=== PATIENT | male | born 1955 | race African-American/Black ===

== ENCOUNTER → 2016-07-20 | Outpatient (CLI) | payer OTHER ==
--- NOTE | 2016-07-21 02:17 | REP ---
Clinical: Lower back pain. Technique: AP, lateral, bilateral oblique, and coned-down views of the lumbosacral spine. Findings: Moderate/early advanced multilevel degenerative changes include osteophytosis, endplate sclerosis, disc space narrowing and hypertrophic facet changes. Findings are most pronounced at the L3-4 through L5-S1 levels. No acute fracture / compression injury or subluxation. Impression: Moderate/early advanced multilevel degenerative disc disease. Signed by Martín Donovan MD 07/21/2016 02:08 A
== END ==
LOC: M RAD 13:36
PROVIDERS: ATTEND Surgery
DX: M51.36 Other intervertebral disc degeneration, lumbar region (principal)